=== PATIENT | male | born 1985 | race Caucasian/White ===

== ENCOUNTER 2022-03-26 13:10 | Emergency (ER) | payer OTHER ==
[2022-03-26 13:26] VITALS: BP 123/76; PULSE 68; TEMP 97.9; BMI 20.3
[2022-03-26] MEDS ORDERED: NAPROXEN 500 MG TABLET PO ONE (13:57)
[2022-03-26] MEDS ORDERED: NAPROXEN 500 MG TABLET ONE (13:59)
== END 2022-03-26 14:47 | disposition home or self-care (01) ==
LOC: JERFT 13:10
DX: S70.01XA Contusion of right hip, initial encounter (principal)
CPT/HCPCS: 72170-TC-FY; 73502-TC-RT-FY; 99284-25